=== PATIENT | female | born 1990 | race Caucasian/White ===

== ENCOUNTER 2016-09-11 18:01 | Emergency (ER) | payer OTHER ==
[2016-09-11 20:28] LABS: HEMOGLOBIN 15.2 gm/dl (12.3-15.3); RED BLOOD COUNT 4.74 M/UL (4.00-5.10); WHITE BLOOD COUNT 6.1 K/UL (4.5-11.0)
[2016-09-11 20:48] LABS: BUN/CREATININE RATIO 11 (0-10)
== END 2016-09-12 00:43 | disposition home or self-care (01) ==
LOC: ER1 18:01
PROVIDERS: Family Medicine
DX: R55 Syncope and collapse (principal); N30.01 Acute cystitis with hematuria; R07.89 Other chest pain; R10.11 Right upper quadrant pain; F32.9 Major depressive disorder, single episode, unspecified; F41.9 Anxiety disorder, unspecified; F17.210 Nicotine dependence, cigarettes, uncomplicated; Z88.5 Allergy status to narcotic agent; Z88.6 Allergy status to analgesic agent; Z88.8 Allergy status to other drugs, medicaments and biological substances
CPT/HCPCS: 36415; 70450; 71010; 72125; 80053; 81001; 82150; 82550; 82553; 83690; 83874; 84484; 84703; 85025; 85379; 87086; 93005; 96361; 96374; 99284; J2405; J2550